=== PATIENT | male | born 1945 | race Caucasian/White ===

== ENCOUNTER 2021-03-05 10:54 | Outpatient (CLI) | payer MEDICARE | END 2021-03-05 10:55 | disposition critical access hospital (66) | LOC: EMS 10:54 | DX: R41.3 Other amnesia (principal) | CPT/HCPCS: A0425; A0427 ==

== ENCOUNTER 2021-03-05 11:22 | Emergency (ER) | payer MEDICARE ==
--- NOTE | 2021-03-05 11:39 | ED Physician Documentation ---
History of Present Illness - Stated complaint Stated Complaint: AMS - Chief complaint Chief Complaint: Neuro - Additonal information Additional information: 76-year-old male presents to the emergency department for evaluation of altered mental status. He was outside doing yard work when a friend stopped by to deliver some dirt. Apparently the patient did not recall who this individual was though they had known each other for a long period of time. He also seemed confused to his situation. EMS was summoned. He was noted to be normoglycemic. He had no obvious focal deficits but was initially oriented to person only. The time now on arrival in the emergency department he is oriented to person and place though he is confused as to the month. He does recognize that Ela is coming up. Past medical history is most significant for hypertension, hyperlipidemia as well as atrial fibrillation. He is rate controlled with carvedilol and altace and anticoagulated with Xarelto. denies CP, SOA, n/v, vertigo. Review of Systems Unable to obtain: AMS Constitutional: denies: Fever, Chills Cardiac: denies: Chest pain / pressure, Palpitations Respiratory: denies: Dyspnea, Cough GI: denies: Abdominal Pain, Nausea, Vomiting : denies: Dysuria, Frequency, Hesitancy Skin: denies: Rash, Lesions Musculoskeletal: denies: Neck pain, Back pain Neurologic: reports: Confused. denies: Generalized weakness, Focal weakness, Numbness, Difficulty speaking, Syncope, Headache, Head injury, LOC PD PAST MEDICAL HISTORY - Present Medications Home Medications: Ambulatory Orders Medication Instructions Recorded Confirmed Carvedilol [Coreg] 6.25 mg PO DAILY 03/05/21 03/05/21 Furosemide [Lasix] 20 mg PO DAILY 03/05/21 03/05/21 Ramipril [Altace] 10 mg PO DAILY 03/05/21 03/05/21 Rivaroxaban [Xarelto] 20 mg ORAL DAILY 03/05/21 03/05/21 Rosuvastatin Calcium [Crestor] 40 mg PO DAILY 03/05/21 03/05/21 Tamsulosin HCl [Flomax] 0.4 mg PO DAILY 03/05/21 03/05/21 - Allergies Allergies/Adverse Reactions: Allergies Allergy/AdvReac Type Severity Reaction Status Date / Time No Known Drug Allergies Allergy Verified 03/05/21 11:31 PD ED PE EXPANDED - General General: Alert, No acute distress, Well developed/nourished - Cardiac Cardiac: Irregularly irregular, Radial strong equal, Pedal strong equal, Cap refill < 2 sec. No: Murmur Present - Respiratory Respiratory: Clear to ausultation kurt. No: Distress, Labored - Abdomen Abdomen: Normal Bowel sounds. No: Tender to palpation - Derm Derm: Normal color, Warm and dry - Extremities Extremities: Normal. No: Deformity, Tenderness - Neuro Neuro: Confused, CNII-XII intact, Cerebellar nl, Normal gait, Normal finger nose, Normal speech - GCS Eye Opening: Spontaneous Motor: Obeys Commands Verbal: Oriented Total: 15 Results - Vitals Vitals: Vital Signs - 24 hr 03/05/21 03/05/21 03/05/21 11:32 11:40 13:35 Temperature 36.9 C 36.5 C Heart Rate 100 98 100 Respiratory 18 14 Rate Blood Pressure 187/110 H 165/97 H 160/90 H O2 Saturation 100 97 98 03/05/21 15:22 Temperature 36.6 C Heart Rate 102 H Respiratory 18 Rate Blood Pressure 156/86 H O2 Saturation 98 Oxygen O2 Source Room air - EKG (time done) 1139 Rate: Rate (enter#) (98) Rhythm: Atrial fibrillation Atkinson: Normal Intervals: No: Prolonged QT QRS: Poor R wave progression Ischemia: Q waves (inferior) Compare to prior EKG: Old EKG unavailable Computer interpretation: Agree with computer - Labs Labs: Laboratory Tests 03/05/21 03/05/21 03/05/21 11:54 11:54 11:54 WBC 7.0 RBC 5.13 Hgb 14.8 Hct 45.2 MCV 88.1 MCH 28.8 MCHC 32.7 RDW 13.9 Plt Count 191 MPV 10.2 Neut # (Auto) 5.4 Lymph # (Auto) 0.9 L [place] # (Auto) 0.5 Eos # (Auto) 0.2 Baso # (Auto) 0.0 Absolute Nucleated RBC 0.00 Nucleated RBC % 0.0 PT 17.4 H INR 1.6 H Sodium 135 Potassium 4.1 Chloride 96 L Carbon Dioxide 26 Anion Gap 13.0 BUN 15 Creatinine 1.0 Estimated GFR (MDRD) 73 L Glucose 111 H Calcium 9.4 Total Bilirubin 1.1 H AST 33 ALT 22 Alkaline Phosphatase 38 L Troponin I High Sens Total Protein 7.9 Albumin 4.6 Globulin 3.3 Albumin/Globulin Ratio 1.4 Lipase 32 Urine Opiates Screen Ur Oxycodone Screen Urine Methadone Screen Ur Propoxyphene Screen Ur Barbiturates Screen Ur Tricyclics Screen Ur Phencyclidine Scrn Ur Amphetamine Screen U Methamphetamines Scrn U Benzodiazepines Scrn Urine Cocaine Screen U Cannabinoids Screen 03/05/21 03/05/21 11:54 12:13 WBC RBC Hgb Hct MCV MCH MCHC RDW Plt Count MPV Neut # (Auto) Lymph # (Auto) [place] # (Auto) Eos # (Auto) Baso # (Auto) Absolute Nucleated RBC Nucleated RBC % PT INR Sodium Potassium Chloride Carbon Dioxide Anion Gap BUN Creatinine Estimated GFR (MDRD) Glucose Calcium Total Bilirubin AST ALT Alkaline Phosphatase Troponin I High Sens 13.1 Total Protein Albumin Globulin Albumin/Globulin Ratio Lipase Urine Opiates Screen NEGATIVE Ur Oxycodone Screen NEGATIVE Urine Methadone Screen NEGATIVE Ur Propoxyphene Screen NEGATIVE Ur Barbiturates Screen NEGATIVE Ur Tricyclics Screen NEGATIVE Ur Phencyclidine Scrn NEGATIVE Ur Amphetamine Screen NEGATIVE U Methamphetamines Scrn NEGATIVE U Benzodiazepines Scrn NEGATIVE Urine Cocaine Screen NEGATIVE U Cannabinoids Screen NEGATIVE - Rads (name of study) CXR Radiology: Final report received (no acute cardiopulmonary process) CTA Head Radiology: Final report received (No evidence of large vessel occlusion, aneurysm or vascular malformation. High-grade right intradural vertebral artery stenosis with poststenotic dilation. The left vertebral artery is widely patent. Ethmoid and frontal mucosal sinus disease. Atrophy and chronic ischemic change.) CTA neck Radiology: Final report received (Calcified and noncalcified sclerotic plaques in both proximal internal carotid arteries without hemodynamically significant stenosis.) MRI brain Radiology: Final report received (No definite infarct or other acute intracranial abnormality. Moderate cerebral volume loss of mild chronic white matter small vessel ischemic changes. Sinus mucosal disease in the frontal and ethmoid sinuses.) PD MEDICAL DECISION MAKING - ED course Complexity details: reviewed old records, reviewed results, re-evaluated jefferson lou, considered differential, d/w patient ED course: 76-year-old male is brought to the emergency department for briefly altered mental status. Reportedly this morning he was working in his yard when a friend stop by to deliver dirt. For a brief period of time he had no recollection of who this gentleman was though they have known each other for many years. At the time he arrived to the emergency department he had regained most of his memory and had no focal neuro deficits. His NIHSS was 0. Screening labs did not show any acute worrisome findings. negative urine drug screen His EKG does show atrial fibrillation which is previously known. He is anticoagulated on Xarelto. He does report a TIA about 1 year ago that was treated at [facility] though we are not privy to those records. We have attempted to obtain them. CT angio of his head and neck do not show any significant stenosis. However the CT angio of the head does show yamilet grade right vertebral artery stenosis with post stenotic dilation distally. 1520: I discussed the CT angio findings with Dr. Thomas and neurologist with [facility]. He does not believe that the vertebral artery stenosis accounts for the patient's briefly altered mental status However he would recommend an MRI emergently if we are able to accommodate that today in the emergency department. He should otherwise remain on his anticoagulation and statin.'s plan and finding has been discussed with the patient and his . They are agreeable to continue 1645: MRI of the brain has been completed. Reassuringly there are no findings to suggest recent infarct. Findings were discussed with patient and his at the bedside. They will follow up with primary care provider Dr. Acosta. Patient should be referred to neurology for outpatient evaluation. He is to continue his statin, Xarelto as well as metoprolol for rate control of his atrial fib. Emergent return precautions were discussed for concerns of slurred speech sudden headache acute confusion or any other focal neuro deficits. Departure - Departure Disposition: 01 Home, Self Care Clinical Impression: AMS (altered mental status) Qualifiers: Altered mental status type: transient alteration of awareness Qualified Code(s): R40.4 - Transient alteration of awareness Vertebral artery stenosis Qualifiers: Laterality: right Qualified Code(s): I65.01 - Occlusion and stenosis of right vertebral artery Condition: Stable Record reviewed to determine appropriate education?: Yes Comments: Gibson winter are seen in the emergency department today after you developed a brief episode of confusion. This seems to have resolved with no treatment from the emergency department. We did do a CT angiogram of your head and neck. The right vertebral artery appeared fairly narrowed. Beyond this narrowing it however does appear dilated. This finding was discussed with Dr. Thomas a neurologist with [facility]. He did recommend an MRI of your brain today to evaluate for infarction though the vertebral artery stenosis does not account for your brief confusion. The MRI of your brain reassuringly did not show findings of a recent stroke. Please discuss this ED visit with Dr. Acosta. You should be referred to a neurologist as an outpatient. Please continue all your previously prescribed medications including the anticoagulation. If you develop any fevers, have sudden slurred speech, become confused again, have arm or leg weakness then please return immediately to the ER for a second evaluation.
[2021-03-05] MEDS ORDERED: IOPAMIDOL-300 100 ML VIAL ONE (11:44)
[2021-03-05] MEDS ORDERED: SODIUM CHLORIDE 0.9% 1,000 ML IV STA (12:01)
[2021-03-05 12:02] LABS: BASOPHILS % (AUTO) 0.6 %; EOSINOPHILS # (AUTO) 0.2 10^3/uL (0.0-0.7); EOSINOPHILS % (AUTO) 2.1 %; HCT - HEMATOCRIT 45.2 % (42.0-52.0); HGB - HEMOGLOBIN 14.8 g/dL (14.0-18.0); LYMPHOCYTES # (AUTO) 0.9 10^3/uL (1.5-3.5); LYMPHOCYTES % (AUTO) 12.3 %; MEAN CORPUSCULAR HEMOGLOBIN 28.8 pg (27.0-31.0); MEAN CORPUSCULAR HGB CONC 32.7 g/dL (32.0-36.0); MEAN CORPUSCULAR VOLUME 88.1 fL (80.0-94.0); MEAN PLATELET VOLUME 10.2 fL (7.4-11.4); MONOCYTES # (AUTO) 0.5 10^3/uL (0.0-1.0); MONOCYTES % (AUTO) 7.7 %; NEUTROPHILS # (AUTO) 5.4 10^3/uL (1.5-6.6); NEUTROPHILS % (AUTO) 77.2 %; PLT - PLATELET COUNT 191 10^3/uL (130-450); RED BLOOD COUNT 5.13 10^6/uL (4.70-6.10); RED CELL DISTRIBUTION WIDTH 13.9 % (12.0-15.0)
[2021-03-05 12:15] LABS: MUDS CUTOFF CONCENTRATIONS CUTOFF CONC BELOW:
--- NOTE | 2021-03-05 12:18 | XRAY Report ---
PROCEDURE: Chest 1 View X-Ray INDICATIONS: Chest Pain TECHNIQUE: One view of the chest was acquired. COMPARISON: 12/18/2015 FINDINGS: Surgical changes and devices: None. Lungs and pleura: No pleural effusions or pneumothorax. Lungs are clear. Mediastinum: Mediastinal contours appear normal. Heart size is normal. Bones and chest wall: No suspicious bony lesions. Overlying soft tissues appear unremarkable. IMPRESSION: No acute cardiopulmonary process demonstrated radiographically. Reviewed by: Salbador Dominguez MD on 03/05/2021 12:17 PM PST Approved by: Salbador Dominguez MD on 03/05/2021 12:17 PM PST Station ID: [id number]
[2021-03-05 12:25] LABS: ALBUMIN 4.6 g/dL (3.2-5.5); ALBUMIN/GLOBULIN RATIO 1.4 (1.0-2.2); BILIRUBIN,TOTAL 1.1 mg/dL (0.2-1.0); CALCIUM 9.4 mg/dL (8.5-10.3); POTASSIUM 4.1 mmol/L (3.5-5.0); TOTAL PROTEIN 7.9 g/dL (6.7-8.2)
[2021-03-05 12:40] LABS: AMPHETAMINE SCREEN,URINE NEGATIVE (NEGATIVE); BARBITURATE SCREEN,UR NEGATIVE (NEGATIVE); BENZODIAZEPINES SCREEN, URINE NEGATIVE (NEGATIVE); COCAINE SCREEN URINE NEGATIVE (NEGATIVE); METHADONE SCREEN, URINE NEGATIVE (NEGATIVE); METHAMPHETAMINES SCREEN, URINE NEGATIVE (NEGATIVE); OPIATE SCREEN, URINE NEGATIVE (NEGATIVE); OXYCODONE SCREEN, URINE NEGATIVE (NEGATIVE); PROPOXYPHENE SCREEN, URINE NEGATIVE (NEGATIVE); THC CANNABINOID SCREEN, URINE NEGATIVE (NEGATIVE); TRICYCLIC ANTIDEPRESSANT,URINE NEGATIVE (NEGATIVE)
[2021-03-05 13:07] LABS: INR 1.6 (0.8-1.2); PT - PROTHROMBIN TIME 17.4 secs (9.9-12.6)
[2021-03-05] MEDS ORDERED: IOPAMIDOL-300 100 ML VIAL IVP ONE (13:09)
--- NOTE | 2021-03-05 13:45 | CT Report ---
PROCEDURE: CT angiogram brain with contrast. CT brain without contrast. INDICATIONS: L sided facial droop CONTRAST: IV CONTRAST: Isovue 300 ml: 80 PO CONTRAST: *NO PO CONTRAST TECHNIQUE: Precontrast 4.5 mm thick angled axial sections acquired from the foramen magnum to the vertex. Afte r the administration of intravenous contrast, 1 mm thick sections acquired through the [place] of [place] is. Postcontrast 4.5 mm thick sections then re-acquired from the foramen magnum to the vertex. For radiation dose reduction, the following was used: automated exposure control, adjustment of mA and/ or kV according to patient size. COMPARISON: None FINDINGS: Image quality: Excellent. Anterior circulation: Intracranial internal carotid arteries are normal in size and flow. Atheroscl erotic plaque noted in both cavernous ICA segments without significant stenosis. The flow within the paired anterior cerebral arteries is normal and symmetric. The flow within the middle cerebral arter ies is normal and symmetric. The anterior communicating artery is seen. No aneurysms are seen. Posterior circulation: There is left vertebral artery dominance. Focal high-grade stenosis of the lef t intradural vertebral artery noted with poststenotic dilatation. Normal basilar artery noted. Flow w ithin the posterior cerebral arteries is normal and symmetric. No aneurysms are seen. CSF spaces: Ventricles are normal in size and shape. Basal cisterns are patent. No extra-axial flu id collections. Brain: No midline shift. No intracranial bleeds or masses. Melissa-white matter interface appears int act. Moderate atrophy and multifocal white matter chronic ischemic change noted. Skull and face: Calvarium and facial bones appear intact, without suspicious lesions. Bilateral int raocular lens replacements noted. Sinuses: Both mastoids and middle ears show fluid opacification. Small metallic density in the left m iddle ear may reflect partial ossicle replacement. Mucosal thickening and fluid noted in the anterior right ethmoid, right frontal and middle left ethmoid sinus. IMPRESSION: 1. No evidence of large vessel occlusion, aneurysm or vascular malformation. 2. High-grade right intradural vertebral artery stenosis with poststenotic dilatation. The left verte bral artery is widely patent. 3. Ethmoid and right frontal mucosal sinus disease 4. Atrophy and chronic ischemic change. Reviewed by: Abmiael Flores MD on 03/05/2021 12:44 PM [facility] Approved by: Abimael Flores MD on 03/05/2021 12:44 PM [facility] Station ID: [id number]
--- NOTE | 2021-03-05 14:12 | CT Report ---
PROCEDURE: ANGIO NECK W INDICATIONS: L sided facial droop, L neck pain CONTRAST: IV CONTRAST: Isovue 300 ml: 80 PO CONTRAST: *NO PO CONTRAST TECHNIQUE: After the administration of intravenous contrast, 1.5 mm axial sections acquired from the aortic arch to the [place] of [place]. Coronal maximum intensity projection (MIP) reformats were then performed. For radiation dose reduction, the following was used: automated exposure control, adjus tment of mA and/or kV according to patient size. COMPARISON: None. FINDINGS: Image quality: Excellent. Carotid system: The great vessels demonstrate a conventional but tortuous anatomy as they arise from the aortic arch. The origins of the common carotid arteries appear patent. The common carotid sander marietta demonstrate normal calibers and courses. Calcified and noncalcified atherosclerotic plaque in lester th proximal internal carotid arteries present without a significant stenosis utilizing NASCET criteri a. The internal carotid arteries demonstrate normal caliber and tortuous course. Posterior circulation: The origins of the vertebral arteries appear patent. The more superior porti ons of the vertebral arteries demonstrate normal course and caliber. They join to form a normal appe aring basilar artery. Soft tissues: Visualized neck soft tissues demonstrate no suspicious abnormalities. The thyroid is normal in size and there are no incidental findings. Bones: No suspicious bony lesions. Visualized cervical spine appears normally aligned. Multilevel generative disc disease and arthropathy noted in the cervical spine. IMPRESSION: Calcified and noncalcified sclerotic plaque in both proximal internal carotid arteries without hemody namically significant stenosis utilizing NASCET criteria. Bilateral mastoid and middle ear effusions may be inflammatory or postinflammatory. The estimate of stenosis included in the report of the imaging study was calculated using the NASCET method Reviewed by: Abimael Flores MD on 03/05/2021 1:11 PM [facility] [place] Approved by: Abimael Flores MD on 03/05/2021 1:11 PM [facility] [place] Station ID: [id number]
[2021-03-05 15:23] VITALS: BP 156/86
--- NOTE | 2021-03-05 16:36 | MRI Report ---
PROCEDURE: Brain W/O INDICATIONS: ? ischemia/ TIA TECHNIQUE: Noncontrast axial T1 spin echo, axial T2 fast spin echo, sagittal and axial FLAIR, coronal T2 fast sp in echo, axial gradient echo, axial diffusion and ADC through the brain. COMPARISON: CT angiogram head and neck 03/05/2021. FINDINGS: Image quality: There is motion artifact slightly as well as magnetic stability artifact limiting eval uation. CSF Spaces: There is moderate cerebral volume loss with prominence of ventricles and sulci. Basal ci sterns are patent. No extra-axial fluid collections. Brain: Diffusion-weighted images demonstrate no definite acute infarcts with evaluation slightly haddad ited in the inferior frontal lobes by magnetic susceptibility artifact. No intracranial hemorrhage, m ass, or mass effect. There are a few periventricular areas of white matter T2 hyperintensity consiste nt with mild chronic small vessel ischemic changes. Skull and face: Calvarium has normal marrow signal. Orbits appear normal. Sinuses: There is mild mucosal thickening within the bilateral frontal and ethmoid sinuses. There is partial mucosal opacification of the right frontoethmoid recess. There is fluid opacification of the mastoid air cells suggestive of mastoiditis. IMPRESSION: 1. No definite infarct or other acute intracranial abnormality. 2. Moderate cerebral volume loss and mild chronic white matter small vessel ischemic changes. 3. Sinus mucosal disease in the frontal and ethmoid sinuses. 4. Fluid opacification of the mastoid air cells compatible with mastoiditis. Reviewed by: Galdino Irvin MD on 03/05/2021 4:34 PM PST Approved by: Galdino Irvin MD on 03/05/2021 4:34 PM PST Station ID: [id number]
== END 2021-03-05 17:21 | disposition home or self-care (01) ==
LOC: EDUNIT# → ED 11:22
DX: I65.01 Occlusion and stenosis of right vertebral artery (principal); I48.91 Unspecified atrial fibrillation; Z79.01 Long term (current) use of anticoagulants
CPT/HCPCS: 36415; 70496; 70498; 70551; 71045; 80053; 80306; 83690; 84484; 85025; 85610; 93005; 96360; 99283; 99284; Q9967

== ENCOUNTER 2023-09-26 04:25 | Emergency (ER) | payer MEDICARE ==
[2023-09-26 05:23] VITALS: BP 159/104; O2SAT 94
--- NOTE | 2023-09-26 05:35 | ED Physician Documentation ---
History of Present Illness - Stated complaint Stated Complaint: UNABLE TO VOID - Chief complaint Chief Complaint: Abd Pain - History obtained from History obtained from: Patient - Additonal information Additional information: 78-year-old man presents with inability to to void for the past several hours. Denies fever, back pain. Does have severe supra pubic abdominal pressure. PD PAST MEDICAL HISTORY - Past Medical History Cardiovascular: Hypertension, High cholesterol, Atrial fibrillation Respiratory: None Neuro: TIA Endocrine/Autoimmune: None GI: None : Benign prostate hypertrophy HEENT: Chronic vision loss Psych: None Musculoskeletal: None Derm: None - Past Surgical History Past Surgical History: Yes General: Other Ortho: Knee replacement Cardiovascular: CABG - Present Medications Home Medications: Ambulatory Orders Medication Instructions Recorded Confirmed Furosemide [Lasix] 20 mg PO DAILY 03/05/21 03/05/21 Ramipril [Altace] 10 mg PO DAILY 03/05/21 03/05/21 Rivaroxaban [Xarelto] 20 mg ORAL DAILY 03/05/21 03/05/21 Rosuvastatin Calcium [Crestor] 40 mg PO DAILY 03/05/21 03/05/21 Tamsulosin HCl [Flomax] 0.4 mg PO DAILY 03/05/21 03/05/21 carvediloL [Coreg] 6.25 mg PO DAILY 03/05/21 03/05/21 - Allergies Allergies/Adverse Reactions: Allergies Allergy/AdvReac Type Severity Reaction Status Date / Time No Known Drug Allergies Allergy Verified 03/05/21 11:31 - Social History Does the pt smoke?: No Smoking Status: Never smoker Does the pt drink ETOH?: Yes Does the pt have substance abuse?: No - Immunizations Immunizations are current?: Yes PD ED PE NORMAL - Vitals Vital signs reviewed: Yes - General General: Alert and oriented X 3, No acute distress, Well developed/nourished - HEENT HEENT: Atraumatic, PERRL, EOMI, Moist mucous membranes, Pharynx benign - Neck Neck: Supple, no meningeal sign - Cardiac Cardiac: RRR - Respiratory Respiratory: No respiratory distress, Clear bilaterally - Abdomen Abdomen: Non tender, Non distended, Other (simon in place, draining clear fluid) Results - Vitals Vitals: Vital Signs - 24 hr 09/26/23 09/26/23 04:54 05:18 Temperature 36.5 C Heart Rate 116 H 92 Respiratory 18 16 Rate Blood Pressure 220/114 H 159/104 H O2 Saturation 97 94 Oxygen O2 Source Room air PD Medical Decision Making - ED course ED course: 78-year-old man presents with acute urinary retention, with estimated fluid in the bladder of 1000 cc on bladder scan. Simon placed with immediate relief of symptoms and good flow. Plan to follow-up outpatient urology. Return precautions given. Departure - Departure Disposition: Home, Self Care Clinical Impression: Acute urinary retention Condition: Stable Instructions: Leg Bag Care Dc Follow-Up: Reena Deras MD [Physician No Access] - Comments: You were seen in the emergency department for Simon catheter placement for acute urinary retention. Please follow-up with Urology and return to the emergency department if you have any new or worsening symptoms or other concerns.
== END 2023-09-26 06:09 | disposition home or self-care (01) ==
LOC: ED 04:25
DX: R33.9 Retention of urine, unspecified (principal); I10 Essential (primary) hypertension; E78.00 Pure hypercholesterolemia, unspecified; I48.91 Unspecified atrial fibrillation; N40.0 Benign prostatic hyperplasia without lower urinary tract symptoms; Z86.73 Personal history of transient ischemic attack (TIA), and cerebral infarction without residual deficits; Z79.01 Long term (current) use of anticoagulants; Z79.899 Other long term (current) drug therapy
CPT/HCPCS: 51702; 99283